=== PATIENT | female | born 1995 | race Caucasian/White ===

== ENCOUNTER → 2024-08-03 14:37 | Outpatient (REF) | payer BC, SELFPAY | LOC: PNTC 14:37 | PROVIDERS: ATTENDING PHYSICIAN Obstetrics & Gynecology | DX: O99.210 Obesity complicating pregnancy, unspecified trimester (principal); Z36.0 Encounter for antenatal screening for chromosomal anomalies; Z36.82 Encounter for antenatal screening for nuchal translucency | CPT/HCPCS: 76801; 76813 ==

== ENCOUNTER → 2024-08-31 16:16 | Outpatient (REF) | payer BC, SELFPAY | LOC: PNTC 16:16 | PROVIDERS: ATTENDING PHYSICIAN Obstetrics & Gynecology | DX: O99.210 Obesity complicating pregnancy, unspecified trimester (principal) | CPT/HCPCS: 76805 ==

== ENCOUNTER → 2024-09-28 15:17 | Outpatient (REF) | payer BC, SELFPAY | LOC: PNTC 15:17 | PROVIDERS: ATTENDING PHYSICIAN Obstetrics & Gynecology | DX: O99.210 Obesity complicating pregnancy, unspecified trimester (principal) | CPT/HCPCS: 76811 ==

== ENCOUNTER → 2024-11-09 17:15 | Outpatient (REF) | payer BC, SELFPAY | LOC: PNTC 17:15 | PROVIDERS: ATTENDING PHYSICIAN Obstetrics & Gynecology | DX: O99.210 Obesity complicating pregnancy, unspecified trimester (principal) | CPT/HCPCS: 76816 ==

== ENCOUNTER → 2024-12-15 15:22 | Outpatient (REF) | payer BC, SELFPAY ==
--- NOTE | 2024-12-15 15:51 | PN.DIAED06 ---
Meal Plan - Gestational
- Breakfast
Gestational Diabetes Meal Plan Name: 2000 calories
Breakfast - Total Carbohydrate (grams): 45
Breakfast - Starch Carbohydrate: 2
Breakfast - Fruit Carbohydrate: 0
Breakfast - Milk Carbohydrate: 1
Breakfast - Nonstarchy Vegetables: Yes
Breakfast - Meat/Protein: 1
Breakfast - Fat: 2
- Morning Snack
Morning Snack - Total Carbohydrate (grams): 30
Morning Snack - Starch Carbohydrate: 1
Morning Snack - Fruit Carbohydrate: 0
Morning Snack - Milk Carbohydrate: 1
Morning Snack - Nonstarchy Vegetables: Yes
Morning Snack - Meat/Protein: 0
Morning Snack - Fat: 0
- Lunch
Lunch - Total Carbohydrate (grams): 45
Lunch - Starch Carbohydrate: 1
Lunch - Fruit Carbohydrate: 1
Lunch - Milk Carbohydrate: 1
Lunch - Nonstarchy Vegetables: Yes
Lunch - Meat/Protein: 2
Lunch - Fat: 2
- Afternoon Snack
Afternoon Snack - Total Carbohydrate (grams): 30
Afternoon Snack - Starch Carbohydrate: 1
Afternoon Snack - Fruit Carbohydrate: 1
Afternoon Snack - Milk Carbohydrate: 0
Afternoon Snack - Nonstarchy Vegetables: Yes
Afternoon Snack - Meat/Protein: 1
Afternoon Snack - Fat: 0
- Dinner
Dinner - Total Carbohydrate (grams): 45
Dinner - Starch Carbohydrate: 2
Dinner - Fruit Carbohydrate: 1
Dinner - Milk Carbohydrate: 0
Dinner - Nonstarchy Vegetables: Yes
Dinner - Meat/Protein: 2
Dinner - Fat: 2
- Evening Snack
Evening Snack - Total Carbohydrate (grams): 45
Evening Snack - Starch Carbohydrate: 1
Evening Snack - Fruit Carbohydrate: 1
Evening Snack - Milk Carbohydrate: 1
Evening Snack - Nonstarchy Vegetables: Yes
Evening Snack - Meat/Protein: 1
Evening Snack - Fat: 0
--- NOTE | 2024-12-15 16:28 | PN.DE ---
Diabetes Education
- -
Candelario presented today for medical nutrition therapy. She is 32 weeks gestation and she denied having gestational diabetes with her first or any family history. I explained glucose metabolism in the body and what occurs to cause an increase
in blood sugar levels. We discussed the importance of keeping blood glucose levels well controlled to prevent complications to the baby during and after delivery. I also explained that Candelario is at a higher risk of developing T2DM in the future.
Candelario bought her own glucometer on [employer] and she has been monitoring her glucose at home for a few days. We reviewed proper technique and along with appropriate fasting and 2 hour post prandial blood glucose levels. I offered to have the nurse
practitioner order the AccuCheck Guide meter for her at her pharmacy but, she stated she wants to continue using her current meter. I also provided written material highlighting the target glucose <95 mg/dL and the 2 hour post prandial , 120 mg/l.
She will communicate her readings weekly to Rabia at [facility].
We discussed macronutrients and I provided her with a 2000 calorie gestational meal plan. We reviewed the plan in detail and I offered suggestions on appropriate meal/snack choices. I encouraged Candelario to keep a food log along with her blood glucose
record. We discussed physical activity and its importance in helping to lower glucose levels. Candelario will reach out to the office with any questions or if she should require the need for insulin.
== END ==
LOC: DES 15:22
PROVIDERS: ATTENDING PHYSICIAN Advanced Practice Midwife
DX: O24.419 Gestational diabetes mellitus in pregnancy, unspecified control (principal)
CPT/HCPCS: 99078

== ENCOUNTER → 2024-12-21 17:18 | Outpatient (REF) | payer BC, SELFPAY | LOC: PNTC 17:18 | PROVIDERS: ATTENDING PHYSICIAN Obstetrics & Gynecology | DX: O99.210 Obesity complicating pregnancy, unspecified trimester (principal); O24.430 Gestational diabetes mellitus in the puerperium, diet controlled | CPT/HCPCS: 76816 ==

== ENCOUNTER → 2025-01-18 16:36 | Outpatient (REF) | payer BC, SELFPAY | LOC: PNTC 16:36 | PROVIDERS: ATTENDING PHYSICIAN Obstetrics & Gynecology | DX: O99.210 Obesity complicating pregnancy, unspecified trimester (principal); O24.419 Gestational diabetes mellitus in pregnancy, unspecified control | CPT/HCPCS: 76816 ==

== ENCOUNTER 2025-01-23 17:18 | Inpatient (IN) | payer BC, SELFPAY ==
[2025-01-23 16:44] VITALS: BMI 33.8
[2025-01-23 16:46] VITALS: BP 110/70
[2025-01-23] MEDS: LR 1000 IV ×2 (17:25→18:10)
[2025-01-23 17:36] LABS: Glucose - Point of Care 88 mg/dl (70-99)
[2025-01-23 17:51] LABS: % Basophils 0.3 % (0-2); % Eosinophils 1.5 % (0-6); % Immature Granulocytes 0.3 % (0-0.5); % Lymphocytes 20.8 % (20.5-51.1); % Monocytes 6.1 % (1.7-9.3); Absolute Eosinophils 0.2 10^3/uL (0-0.7); Absolute Lymphocytes 2.1 10^3/uL (1.2-3.4); Absolute Monocytes 0.6 10^3/uL (0.1-0.6); Hematocrit 39.8 % (37.0-47.0); Hemoglobin 14.3 g/dL (12.0-16.0); Mean Corp Hgb Conc. 35.9 g/dL (33.0-37.0); Mean Corpuscular Hgb 32.9 pg (27.0-31.0); Mean Corpuscular Volume 91.5 fL (81.0-99.0); Mean Platelet Volume 10.4 fL (7.4-10.4); Nucleated Red Blood Cells % 0 %; Platelet Count 253 10^3/uL (130-400); Red Blood Cell Count 4.35 10^6/uL (4.20-5.40); Red Cell Dist. Width 12.5 % (11.5-14.5); White Blood Cell Count 9.9 10^3/uL (4.8-10.8)
[2025-01-23] MEDS: SUBLIMAZE 100 MCG EPIDURAL (18:15)
[2025-01-23] MEDS: FENTANYL/BUPIVACAINE 100 EPIDURAL (18:16)
[2025-01-23 19:34] LABS: Glucose - Point of Care 99 mg/dl (70-99)
[2025-01-23] MEDS: PITOCIN 30 UNITS/NSS 500 ML IV (21:21)
[2025-01-23] MEDS: METHERGINE INJECTION 0.2 MG IM (21:55)
[2025-01-24] MEDS: MOTRIN 600 MG PO ×3 (01:02→18:06)
[2025-01-24] MEDS: TYLENOL 650 MG PO ×3 (01:02→18:06)
[2025-01-24 05:08] LABS: Hematocrit 38.4 % (37.0-47.0); Hemoglobin 13.8 g/dL (12.0-16.0)
[2025-01-24] MEDS: SENOKOT-S 1 TABLET PO (08:39)
[2025-01-24] MEDS: CLARITIN 10 MG PO (08:39)
[2025-01-24] MEDS: PRENATAL PLUS 1 TABLET PO (08:39)
[2025-01-25] MEDS: MOTRIN 600 MG PO ×2 (01:31→07:35)
[2025-01-25] MEDS: TYLENOL 650 MG PO ×2 (01:31→07:34)
[2025-01-25] MEDS: PRENATAL PLUS 1 TABLET PO (07:34)
[2025-01-25] MEDS: CLARITIN PO (10:24)
[2025-01-25] MEDS: M-M-R II 0.5 ML SC (10:25)
[2025-01-26 14:14] LABS: Syphilis/T. pallidum Ab Reflex Negative (Negative)
== END 2025-01-25 10:34 | disposition home or self-care (01) | DRG 807 ==
LOC: LDRP 17:18
PROVIDERS: ADMITTING PHYSICIAN Obstetrics & Gynecology
PROC: 4A1HXCZ Monitoring of Products of Conception, Cardiac Rate, External Approach (ICD-10-PCS; 2025-01-23)
PROC: 0HQ9XZZ Repair Perineum Skin, External Approach (ICD-10-PCS; 2025-01-23)
PROC: 10907ZC Drainage of Amniotic Fluid, Therapeutic from Products of Conception, Via Natural or Artificial Opening (ICD-10-PCS; 2025-01-23)
PROC: 10E0XZZ Delivery of Products of Conception, External Approach (ICD-10-PCS; 2025-01-23)
PROC: 3E0134Z Introduction of Serum, Toxoid and Vaccine into Subcutaneous Tissue, Percutaneous Approach (ICD-10-PCS; 2025-01-25)
DX: O24.420 Gestational diabetes mellitus in childbirth, diet controlled (principal); Z37.0 Single live birth; O77.0 Labor and delivery complicated by meconium in amniotic fluid; O70.0 First degree perineal laceration during delivery; O69.89X0 Labor and delivery complicated by other cord complications, not applicable or unspecified; Z3A.37 37 weeks gestation of pregnancy; Z23 Encounter for immunization
CPT/HCPCS: 36415; 82962; 85014; 85018; 85025; 86780; 86850; 86900; 86901; 90707